=== PATIENT | female | born 1960 | race Caucasian/White ===

== ENCOUNTER 2023-05-19 16:02 | Emergency (ER) | payer BC ==
[~2023-05-19] VITALS: Ht 152.4 cm; Wt 88.5 kg
[2023-05-19 16:02] VITALS: BP_SYST 147; PULSE 76; RESP 18; TEMP 97.8; O2SAT 97
[2023-05-19] MEDS ORDERED: MIDAZOLAM HCL 5 MG/5 ML VIAL IVP ONE (16:45)
[2023-05-19] MEDS ORDERED: KETAMINE HCL 500 MG/10 ML VIAL IVP ONE (16:45)
[2023-05-19] MEDS ORDERED: IBUP-1969 PO (18:22)
[2023-05-19] MEDS ORDERED: HYDR-3917 PO (18:22)
[2023-05-19 18:53] VITALS: BP_SYST 141; PULSE 78; RESP 19; TEMP 98; O2SAT 96
== END 2023-05-19 18:50 | disposition home or self-care (01) ==
LOC: SED 16:02
DX: S43.014A Anterior dislocation of right humerus, initial encounter (principal); Z79.899 Other long term (current) drug therapy; W01.0XXA Fall on same level from slipping, tripping and stumbling without subsequent striking against object, initial encounter; Y93.89 Activity, other specified; Y92.89 Other specified places as the place of occurrence of the external cause; Y99.8 Other external cause status
CPT/HCPCS: 99285; 23650; 73030; 99152; 73020; J2250